=== PATIENT | male | born 1965 | race Caucasian/White ===

== ENCOUNTER 2016-12-13 14:30 | Emergency (ER) | payer OTHER ==
[2016-12-13] MEDS ORDERED: MORPHINE 2 MG/ML SYRINGE IVP STA (14:37)
[2016-12-13] MEDS ORDERED: TETANUS/DIPHTHERIA/PERTUSSIS 0.5 ML SYRINGE IM ONE (14:37)
--- NOTE | 2016-12-13 14:45 | ED Physician Documentation ---
PD HPI HEAD INJURY - Stated complaint Stated Complaint: FACE INJ - Chief complaint Chief Complaint: Trauma Hd/Nk - History obtained from History obtained from: Patient - History of Present Illness Mechanism of head injury: Other (car fell off jackstand and landed on his face) Where head injury occurred: Home Timing - onset: How many hours ago (1) Pain level max: 8 Pain level now: 6 Location of injury: Left, Front Quality of pain: Pain, Throbbing, Aching Associated symptoms: No: LOC, AMS, Amnesia, Nausea / vomiting, Neck pain, Paresthesias, Seizures, Ear drainage, Nasal drainage Symptoms improve with: Rest Symptoms worsen with: Palpation Contributing factors: No: Anticoagulated, Intoxicated Recently seen: Not recently seen - Additional information Additional information: states that he was working on a serpentine belt, car was on a jackstand and fell off striking him in the face. No LOC. No vomiting Review of Systems Ten Systems: 10 systems reviewed and negative Constitutional: denies: Fever, Chills Eyes: denies: Decreased vision, Photophobia Ears: denies: Ear pain Nose: denies: Rhinorrhea / runny nose Throat: denies: Sore throat Cardiac: denies: Chest pain / pressure Respiratory: denies: Cough GI: denies: Abdominal Pain, Nausea, Vomiting, Diarrhea Skin: denies: Rash Musculoskeletal: denies: Neck pain, Back pain Neurologic: denies: Seizure, Confused, LOC PD PAST MEDICAL HISTORY - Past Medical History Past Medical History: Yes Cardiovascular: Hypertension - Past Surgical History Past Surgical History: No - Present Medications Home Medications: Ambulatory Orders Medication Instructions Recorded Confirmed No Known Home Medications [No 12/13/16 12/13/16 Known Home Medications] - Allergies Allergies/Adverse Reactions: Allergies Allergy/AdvReac Type Severity Reaction Status Date / Time No Known Drug Allergies Allergy Verified 12/13/16 14:34 - Living Situation Living Arrangement: reports: At home - Social History Does the pt smoke?: Yes Does the pt drink ETOH?: Yes Does the pt have substance abuse?: No PD ED PE NORMAL - Vitals Vital signs reviewed: Yes - General General: Alert and oriented X 3, No acute distress, Well developed/nourished - HEENT HEENT: PERRL, EOMI, Ears normal, Moist mucous membranes, Other (laceration to the bridge of the nose. laceration to the superior L eyebrow. Swelling to the eyelid. Laceration L eyelid. L periorbital swelling and ecchymosis. 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 IOP 11 on the L. IOP 14 on the R.) Results - Vitals Vitals: Vital Signs - 24 hr 12/13/16 12/13/16 12/13/16 14:30 14:38 15:50 Temperature 36.2 C L Heart Rate 67 59 L 56 L Respiratory 18 18 15 Rate Blood Pressure 164/102 H 178/106 H 166/91 H O2 Saturation 99 100 99 12/13/16 12/13/16 12/13/16 16:03 16:16 16:33 Temperature Heart Rate 55 L 53 L 55 L Respiratory 16 13 14 Rate Blood Pressure 157/98 H 157/98 H 170/95 H O2 Saturation 97 98 99 12/13/16 12/13/16 18:02 19:10 Temperature Heart Rate 55 L 72 Respiratory 13 18 Rate Blood Pressure 153/93 H 143/90 H O2 Saturation 99 99 Oxygen O2 Source Room air - Rads (name of study) head CT Radiology: Prelim report reviewed, EMP read contemporaneously, See rad report ( No evidence of hemorrhage or mass effect. Small amount of pneumocephalus within the left inferior temporal region. There are minimally displaced left sphenoid and squamous temporal bone fractures. Facial findings are detailed separately. ) facial bone CT Radiology: Prelim report reviewed, EMP read contemporaneously, See rad report ( There are extensive minimally displaced bilateral facial fractures as detailed above. Fractures extend through the bilateral sphenoid bones with small amounts of bilateral associated temporal pneumocephalus. There are bilateral minimally displaced orbital roof fractures. Fractures extend through the lateral ely of the bilateral orbital canals with some comminution on the left. There is minimally displaced fracture through the sella turcica. 2. Small amounts of hematoma within the left paranasal sinuses. 3. No CT evidence of orbital globe injury or significant retro-orbital hematoma. 4. Intracranial findings are detailed separately. ) PD MEDICAL DECISION MAKING - ED course Complexity details: reviewed results, re-evaluated patient, considered differential, d/w patient, d/w family, d/w medical record consultant ED course: Patient is a 51-year-old male who presents to the emergency department after a car slipped off of a [place] and landed on his face. Found to have bilateral orbital fractures including the roof of the orbit, sphenoid and a left-sided squamous temporal bone fracture. He does have associated pneumocephalus. The orbital fractures extending from the orbital roof through the lateral ely of the bilateral orbital canals with some comminution on the left. There is also minimally displaced fractures through the sella turcica. Small hematoma in the left paranasal sinus. No evidence of globe injury or retro-orbital hematoma on CT scan. No proptosis on exam here. Pupils are equal round and reactive to light. Extraocular movements intact. Pain well controlled. Nausea well controlled. Tdap given. Lacerations were washed and covered with saline gauze. 1550 - Called placed to [facility] [place] for transfer. 1730 - D/w Dr. Rm Facial surgery who recommends follow up in 3 days in clinic. But recommends ophtho and neurosurgery consult. 175 - Dr. Pires (NSGY) recommends followup if pt notices a CSF leak. 1750 - Dr. Maria (ophtho) and recommends IOP and snellen, call back with results. 1810 - Dr. Maria called back with IOP OS 11 and OD 14. Unable to read any of the near snellen chart. Will accept to [facility] [place] ED in transfer. Departure - Departure Disposition: 02 Transfer Acute Care Hosp Clinical Impression: Pneumocephalus, traumatic Orbital roof fracture with intracranial injury Qualifiers: Encounter type: initial encounter Fracture type: closed Qualified Code(s): S02.19XA - Other fracture of base of skull, initial encounter for closed fracture Sphenoid sinus fracture Qualifiers: Encounter type: initial encounter Fracture type: closed Qualified Code(s): S02.19XA - Other fracture of base of skull, initial encounter for closed fracture Temporal bone fracture Qualifiers: Encounter type: initial encounter Fracture type: closed Qualified Code(s): S02.19XA - Other fracture of base of skull, initial encounter for closed fracture Condition: Stable Discharge Date/Time: 12/13/16 19:20
[2016-12-13] MEDS ORDERED: MORPHINE 2 MG/ML SYRINGE ONE (14:51)
[2016-12-13] MEDS ORDERED: SODIUM CHLORIDE FLUSH 0.9% 10 ML SYRINGE IVP ONE (14:51)
[2016-12-13] MEDS ORDERED: TETANUS/DIPHT/PERTUSS (PED) 0.5 ML VIAL IM ONE (15:11)
[2016-12-13] MEDS ORDERED: ONDANSETRON 4 MG/2 ML VIAL IVP STA ×2 (15:14→15:25)
[2016-12-13] MEDS ORDERED: ONDANSETRON 4 MG/2 ML VIAL ONE ×2 (15:17→15:38)
--- NOTE | 2016-12-13 15:33 | CT Preliminary Report ---
Exam: CT Head W/O IMPRESSION: 1. No evidence of hemorrhage or mass effect. 2. Small amount of pneumocephalus within the left inferior temporal region. 3. There are minimally displaced left sphenoid and squamous temporal bone fractures. Facial findings are detailed separately. [facility] SITE ID: [id number]
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
--- NOTE | 2016-12-13 15:45 | CT Preliminary Report ---
Exam: CT Facial Bones W/O IMPRESSION: 1. There are extensive minimally displaced bilateral facial fractures as detailed above. Fractures ex tend through the bilateral sphenoid bones with small amounts of bilateral associated temporal pneumoc ephalus. There are bilateral minimally displaced orbital roof fractures. Fractures extend through the lateral ely of the bilateral orbital canals with some comminution on the left. There is minimally displaced fracture through the sella turcica. 2. Small amounts of hematoma within the left paranasal sinuses. 3. No CT evidence of orbital globe injury or significant retro-orbital hematoma. 4. Intracranial findings are detailed separately. [facility] SITE ID: [id number]
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
[2016-12-13] MEDS ORDERED: SODIUM CHLORIDE 0.9% 1,000 ML IV ONE (16:07)
[2016-12-13] MEDS ORDERED: PROMETHAZINE INJ 25 MG in SODIUM CHLORIDE 0.9% 50 ML IV STA (16:07)
[2016-12-13] MEDS ORDERED: PROMETHAZINE 25 MG/1 ML VIAL ONE (16:12)
[2016-12-13] MEDS ORDERED: LORazepam 2 MG/ML SYRINGE IVP STA (16:57)
[2016-12-13] MEDS ORDERED: LORazepam 2 MG/ML SYRINGE ONE (17:06)
[2016-12-13 19:24] VITALS: BP 143/90
== END 2016-12-13 19:20 | disposition short-term general hospital (02) ==
LOC: ED 14:30
DX: S02.19XA Other fracture of base of skull, initial encounter for closed fracture (principal); G93.89 Other specified disorders of brain; W20.8XXA Other cause of strike by thrown, projected or falling object, initial encounter; Y92.015 Private garage of single-family (private) house as the place of occurrence of the external cause; Z23 Encounter for immunization; I10 Essential (primary) hypertension; F17.200 Nicotine dependence, unspecified, uncomplicated
CPT/HCPCS: 70450; 70486; 90471; 96361; 96365; 96375; 99284; 99285; J2060; J7040

== ENCOUNTER 2016-12-13 19:24 | Outpatient (CLI) | payer OTHER | END 2016-12-13 19:25 | disposition short-term general hospital (02) | LOC: EMS 19:24 | PROVIDERS: ATTEND Surgery | DX: S02.92XA Unspecified fracture of facial bones, initial encounter for closed fracture (principal); W23.1XXA Caught, crushed, jammed, or pinched between stationary objects, initial encounter; Y93.89 Activity, other specified | CPT/HCPCS: A0170; A0425; A0426 ==

== ENCOUNTER 2017-10-04 18:09 | Emergency (ER) | payer OTHER ==
[2017-10-04] MEDS ORDERED: LIDOCAINE 1%-EPI 1:100000 20 ML MDV SUBQ STA (20:09)
[2017-10-04] MEDS ORDERED: LIDOCAINE 1%-EPI 1:100000 30 ML MDV ONE (20:21)
[2017-10-04] MEDS ORDERED: BACITRACIN OINT TOP STA (20:35)
--- NOTE | 2017-10-04 20:38 | ED Physician Documentation ---
PD HPI UPPER EXT INJURY - Stated complaint Stated Complaint: LEFT ARM LAC - Chief complaint Chief Complaint: General - History obtained from History obtained from: Patient - History of Present Illness Location: Left, Forearm Type of injury: Laceration Where injury occurred: Home Timing - onset: How many hours ago (6) - Additonal information Additional information: The patient is a 52-year-old male who cut his left forearm with a bearing grinder wheel about 7 hours prior to arrival. He is right-hand dominant. He denies any other injuries. His tetanus status is up-to-date. Review of Systems Skin: reports: Laceration (s) Musculoskeletal: denies: Joint pain Neurologic: denies: Focal weakness, Numbness PD PAST MEDICAL HISTORY - Past Medical History Past Medical History: Yes Cardiovascular: Hypertension HEENT: Other - Past Surgical History Past Surgical History: Yes - Present Medications Home Medications: Ambulatory Orders Medication Instructions Recorded Confirmed Telmisartan/Hydrochlorothiazid 1 tab 10/04/17 [Micardis Hct 40-12.5 mg Tablet] - Allergies Allergies/Adverse Reactions: Allergies Allergy/AdvReac Type Severity Reaction Status Date / Time No Known Drug Allergies Allergy Verified 10/04/17 18:23 - Social History Does the pt smoke?: No Smoking Status: Never smoker Does the pt drink ETOH?: Yes Does the pt have substance abuse?: No - Immunizations Immunizations are current?: Yes Immunizations: TDAP current <10years - POLST Patient has POLST: No PD ED PE NORMAL - Vitals Vital signs reviewed: Yes (Normal) - General General: Alert and oriented X 3, Well developed/nourished - HEENT HEENT: Atraumatic - Respiratory Respiratory: No respiratory distress - Derm Derm: No rash - Extremities Extremities: Other (There are 3 lacerations on the medial aspect of the left forearm, totaling 6 cm in length. Distal neurovascular is intact.) - Neuro Neuro: Alert and oriented X 3, No motor deficit, No sensory deficit Results - Vitals Vitals: Vital Signs - 24 hr 10/04/17 10/04/17 18:20 20:52 Temperature 36.6 C 36.6 C Heart Rate 64 56 L Respiratory 20 16 Rate Blood Pressure 127/85 H 128/70 O2 Saturation 98 98 Oxygen O2 Source Room air Procedures - Laceration (location) Left forearm Length in cm: 6 Wound type: Irregular, Into subcut fat Neurovascular status: Sensory intact, Motor intact, Vascular intact Anesthesia: Lidocaine 1% with epi Wound Preparation: Hibiclens, Irrigated copiously NS, Wound explored, To the base. No: FB identified Skin layer closure: Nylon, Running, Size #-0 - enter number (5) Other: Patient tolerated well, No complications, Neurovascular intact, Dressing applied, Tetanus UTD Complexity: Simple PD MEDICAL DECISION MAKING - ED course Complexity details: d/w patient, d/w family ED course: Keep the wound clean, and apply antibiotic ointment daily. You can use Tylenol or ibuprofen if needed for pain or discomfort. Follow-up for suture removal in 10-12 days. Return to the emergency department if you develop any sign of infection, or otherwise worsening symptoms. Departure - Departure Disposition: 01 Home, Self Care Clinical Impression: Laceration of forearm Qualifiers: Encounter type: initial encounter Laterality: left Qualified Code(s): S51.812A - Laceration without foreign body of left forearm, initial encounter Condition: Stable Instructions: ED Laceration Ext Sutr Stap Tape Follow-Up: CAT DELACRUZ [Primary Care Provider] - Comments: Keep the wounds clean, and apply antibiotic ointment daily. You can use Tylenol or ibuprofen if needed for pain or discomfort. Follow-up for suture removal in 10-12 days. Return to the emergency department if you develop any sign of infection, or otherwise worsening symptoms. Discharge Date/Time: 10/04/17 20:52
[2017-10-04 20:53] VITALS: BP 128/70
== END 2017-10-04 20:52 | disposition home or self-care (01) ==
LOC: ED 18:09
DX: S51.812A Laceration without foreign body of left forearm, initial encounter (principal); W29.8XXA Contact with other powered hand tools and household machinery, initial encounter; Y92.009 Unspecified place in unspecified non-institutional (private) residence as the place of occurrence of the external cause; I10 Essential (primary) hypertension
CPT/HCPCS: 12002; 99282; 99283; A9270